=== PATIENT | female | born 2000 | race Hispanic/Latino ===

== ENCOUNTER 2022-05-08 18:45 | Emergency (ER) | payer MEDICAID ==
[2022-05-08] MEDS ORDERED: Zithromax 250 MG TABLET PO ONE (18:59)
[2022-05-08 19:01] VITALS: BP 143/75; PULSE 110
[2022-05-08] MEDS ORDERED: Zithromax 250 MG TABLET ONE (19:02)
[2022-05-08 19:04] VITALS: O2SAT 97
--- NOTE | 2022-05-08 19:04 | ERPHSYRPT ---
- History of Present Illness Time Seen by Provider: 05/08/22 18:48 Source: patient Exam Limitations: no limitations Physician History: 21 years old female presented to the ER with chief complaint of right earaches started yesterday. She tried to use a Q-tip and pain is getting worse. He took [id number] medication and feeling better. She also noticed decreased hearing from right ear and whenever she moves on the right side feels fluid moving along with it. Denies any nasal congestion, sinusitis or URI symptoms. No ear discharge. No fever or chills reported. Timing/Duration: abrupt onset, yesterday Severity: moderate ENT Location: ear (R) Prearrival Treatment: over the counter meds Associated Symptoms: ear pain (R), change in hearing, No ear drainage, No nasal congestion/drainage, No ringing of ears, No sinus infection, No difficulty swallowing Allergies/Adverse Reactions: Penicillins Allergy (Severe, Verified 05/08/22 18:50) Difficulty Breathing - Review of Systems Constitutional: No Symptoms Eyes: No Symptoms Ears, Nose, & Throat: Ear Pain Respiratory: No Symptoms Cardiac: No Symptoms Musculoskeletal: No Symptoms Skin: No Symptoms Neurological: No Symptoms Psychological: No Symptoms Endocrine: No Symptoms - Physical Exam General Appearance: no apparent distress, alert Eye Exam: bilateral eye: normal inspection, PERRL, EOMI Ear Exam: right ear: erythema (Canal), tenderness, TM red, left ear: canal normal, TM normal, bilateral ear: auricle normal Nasal Exam: normal inspection Throat Exam: normal, pharynx normal Neck Exam: normal inspection, non-tender, supple, full range of motion Cardiovascular/Respiratory Exam: normal breath sounds, regular rate/rhythm Neurologic Exam: alert, oriented x 3, cooperative, 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 Started on Zithromax Recommended not using Q-tip. Outpatient follow-up. Counseled pt/family regarding: diagnosis, need for follow-up - Departure Departure Disposition: Home Clinical Impression: Otitis media Condition: Stable Critical Care Time: No Referrals: CRISELDA ROQUE [ACTIVE STAFF] - Follow Up with PCP/3 days Additional Instructions: Take Tylenol/ibuprofen as needed. Continue with antibiotics. Do not use Q- tips. Follow-up with primary care for reevaluation. Return to ER for any worsening Prescriptions: Azithromycin 250 mg [Zithromax 250 MG TABLET] 250 mg PO DAILY 4 Days #4 tablet
== END 2022-05-08 19:31 | disposition home or self-care (01) ==
LOC: ED 18:45
DX: H66.91 Otitis media, unspecified, right ear (principal); H92.01 Otalgia, right ear; H91.8X1 Other specified hearing loss, right ear
CPT/HCPCS: 99281; A9270-GY

== ENCOUNTER 2022-07-18 18:21 | Emergency (ER) | payer MEDICAID ==
--- NOTE | 2022-07-18 19:36 | ERPHSYRPT ---
- History of Present Illness Time Seen by Provider: 07/18/22 19:20 Historian: patient Exam Limitations: no limitations Patient Subjective Stated Complaint: pt here for pain to back and lower abd for a couple days now, she states she is 4 wks and 5 days , no vaginal bleeding, no difficulty urinating Triage Nursing Assessment: pt alert, walked in, resp easy, skin w/d, abd soft, Physician History: This is a 22-year-old overweight white female who presents with bilateral suprapubic abdominal pain. She has not had any vaginal discharge or vaginal bleeding. She is 4 weeks and 5 days . Patient took 2 test within the last 48 hours and they were both positive. Timing/Duration: day(s) (3 days), intermittent Quality: sharpness Pain Radiation: no radiation Severity of Pain-Max: mild Severity of Pain-Current: mild Modifying Factors: Improves With: nothing Associated Symptoms: denies symptoms Previous symptoms: no prior history Allergies/Adverse Reactions: Penicillins Allergy (Severe, Verified 07/18/22 19:00) Difficulty Breathing Hx Tetanus, Diphtheria Vaccination/Date Given: Yes Hx Influenza Vaccination/Date Given: No Hx Pneumococcal Vaccination/Date Given: No Immunizations Up to Date: Yes Travel Risk - International Travel Have you traveled outside of the country in past 3 weeks: No - Coronavirus Screening Are you exhibiting any of the following symptoms?: No Close contact with a COVID-19 positive Pt in past 14-21 Days: No - Vaccine Status Have you recieved a Covid-19 vaccination: No - Review of Systems Constitutional: No Symptoms Eyes: No Symptoms Ears, Nose, & Throat: No Symptoms Respiratory: No Symptoms Cardiac: No Symptoms Abdominal/Gastrointestinal: Abdominal Pain (Suprapubic bilateral) Genitourinary Symptoms: No Symptoms Musculoskeletal: No Symptoms Skin: No Symptoms Neurological: No Symptoms Psychological: No Symptoms Endocrine: No Symptoms Hematologic/Lymphatic: No Symptoms Immunological/Allergic: No Symptoms All Other Systems: Reviewed and Negative - Past Medical History Pertinent Past Medical History: Yes Psycho-Social History: Anxiety, Bipolar, Depression - Past Surgical History Past Surgical History: No - Social History Smoking Status: Former smoker Exposure to second hand smoke: Yes Drug Use: none Patient Lives Alone: No - Female History Hx Last Menstrual Period: april Hx Now: Yes - Nursing Vital Signs Nursing Vital Signs: Initial Vital Signs Temperature 96.7 F 07/18/22 19:09 Pulse Rate 67 07/18/22 19:09 Respiratory Rate 20 07/18/22 19:09 Blood Pressure 113/60 07/18/22 19:09 O2 Sat by Pulse Oximetry 100 07/18/22 19:09 Pain Scale Pain Intensity 8 - Physical Exam General Appearance: no apparent distress, alert, anxiety Eye Exam: PERRL/EOMI, eyes nml inspection Ears, Nose, Throat Exam: normal ENT inspection, moist mucous membranes Neck Exam: normal inspection, non-tender, supple, full range of motion Respiratory Exam: normal breath sounds, lungs clear, airway intact, No chest tenderness, No respiratory distress Cardiovascular Exam: regular rate/rhythm, normal heart sounds, normal peripheral pulses Gastrointestinal/Abdomen Exam: soft, normal bowel sounds, tenderness, No guarding, No rebound Pelvic Exam: not done Rectal Exam: not done Back Exam: normal inspection, normal range of motion, No CVA tenderness, No vertebral tenderness Extremity Exam: normal inspection, normal range of motion, pelvis stable Neurologic Exam: alert, oriented x 3, cooperative, 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, normal mood/affect, nml cerebellar function, nml station & gait, sensation nml Skin Exam: normal color, warm, dry Lymphatic Exam: No adenopathy SpO2 Interpretation: normal SpO2: 100 O2 Delivery: Room Air - Course Nursing assessment & vital signs reviewed: Yes Ordered Tests: Active Orders 24 hr Category Date Time Status CBC W DIFF Stat Lab 07/18/22 19:25 Completed CMP Stat Lab 07/18/22 19:25 Completed CULTURE,URINE Stat Lab 07/18/22 19:50 Received HCG, Quantitative (Inhouse) Stat Lab 07/18/22 19:25 Completed UA W/RFX CULTURE Stat Lab 07/18/22 19:50 Completed Lab/Rad Data: Laboratory Result Diagrams 07/18/22 19:25 07/18/22 19:25 Laboratory Results 07/18/22 07/18/22 07/18/22 Range/Units 19:50 19:25 19:25 WBC 9.3 (4.0-10.5) x10^3/uL RBC 4.73 (4.1-5.4) x10^6/uL Hgb 12.9 (12.0-16.0) g/dL Hct 40.0 (35-47) % MCV 84.6 (78-100) fL MCH 27.3 (26-32) pg MCHC 32.3 (32-36) g/dL RDW 14.4 H (11.5-14.0) % Plt Count 311 (150-450) x10^3/uL MPV 8.4 (7.5-11.0) fL Gran % 66.8 H (36.0-66.0) % Immature Gran % (Auto) 0.2 (0.00-0.4) % Nucleat RBC Rel Count 0.0 (0.00-0.1) % Eos # (Auto) 0.15 (0-0.5) x10^3/uL Immature Gran # (Auto) 0.02 (0.00-0.03) x10^3u/L Absolute Lymphs (auto) 2.32 (1.0-4.6) x10^3/uL Absolute Monos (auto) 0.57 (0.0-1.3) x10^3/uL Absolute Nucleated RBC 0.00 (0.00-0.01) x10^3u/L Lymphocytes % 25.0 (24.0-44.0) % Monocytes % 6.1 (0.0-12.0) % Eosinophils % 1.6 (0.00-5.0) % Basophils % 0.3 (0.0-0.4) % Absolute Granulocytes 6.19 (1.4-6.9) x10^3/uL Basophils # 0.03 (0-0.4) x10^3/uL Sodium 139 (137-145) mmol/L Potassium 3.8 (3.5-5.1) mmol/L Chloride 109 H (98-107) mmol/L Carbon Dioxide 25 (22-30) mmol/L Anion Gap 8.9 (5-15) MEQ/L BUN 10 (7-17) mg/dL Creatinine 0.60 (0.52-1.04) mg/dL Estimated GFR > 60.0 ML/MIN Glucose 86 (74-106) mg/dL Calcium 8.4 (8.4-10.2) mg/dL Total Bilirubin 0.20 (0.2-1.3) mg/dL AST 33 (14-36) U/L ALT 31 (0-35) U/L Alkaline Phosphatase 87 (38-126) U/L Serum Total Protein 7.0 (6.3-8.2) g/dL Albumin 3.9 (3.5-5.0) g/dL Beta HCG, Quant 724.47 mIU/ml Urinalys Dipstick Clnc MAIN LAB Urine Color YELLOW (YELLOW) Urine Appearance CLEAR (CLEAR) Urine pH 7.0 (5-6) Ur Specific Mcder[place]ott 1.025 (1.005-1.025) POC Urine Protein Conf 30 (Negative) Urine Ketones TRACE (NEGATIVE) Urine Nitrite NEGATIVE (NEGATIVE) Urine Bilirubin NEGATIVE (NEGATIVE) Urine Urobilinogen 1 (0-1) mg/dL Urine Leukocytes SMALL (NEGATIVE) Urine WBC (Auto) 3-5 (0-5) /HPF Urine RBC (Auto) 0-2 (0-2) /HPF U Epithel Cells (Auto) RARE (FEW) /HPF Urine Bacteria (Auto) NONE (NEGATIVE) /HPF Urine RBC NEGATIVE (0-5) Alan/ul Urine Mucus (Auto) SLIGHT (NEGATIVE) /HPF Ur Culture Indicated? YES Urine Glucose NEGATIVE (NEGATIVE) mg/dL - Departure Departure Disposition: Home Clinical Impression: UTI (urinary tract infection) during Condition: Stable Critical Care Time: No Referrals: DOCTOR,NO FAMILY [Primary Care Provider] - Follow up/PCP as directed Additional Instructions: Plenty of fluids. Take your antibiotics as prescribed. Follow-up with your primary care provider for further evaluation and management. Prescriptions: Nitrofurantoin Monohyd/M-Cryst [Macrobid 100 mg Capsule] 100 mg PO BID #10 cap
[2022-07-18 19:38] LABS: Absolute Neutrophil Ct (ANC) 6.19 x10^3/uL (1.4-6.9); Basophil (Absolute #) 0.03 x10^3/uL (0-0.4); Eosinophil % 1.6 % (0.00-5.0); Eosinophil (Absolute #) 0.15 x10^3/uL (0-0.5); Hemoglobin 12.9 g/dL (12.0-16.0); Lymphocyte (Absolute #) 2.32 x10^3/uL (1.0-4.6); Mean Cell Volume 84.6 fL (78-100); Mean Corpuscular Hemoglobin 27.3 pg (26-32); Mean Corpuscular Hgb Concent. 32.3 g/dL (32-36); Mean Platelet Volume 8.4 fL (7.5-11.0); Monocyte (Absolute #) 0.57 x10^3/uL (0.0-1.3); Monocytes % 6.1 % (0.0-12.0); Neutrophil % 66.8 % (36.0-66.0); Platelet Count 311 x10^3/uL (150-450); Red Blood Count 4.73 x10^6/uL (4.1-5.4); Red Cell Distribution Width 14.4 % (11.5-14.0); White Blood Count 9.3 x10^3/uL (4.0-10.5)
[2022-07-18 20:09] LABS: ALBUMIN 3.9 g/dL (3.5-5.0); ALKALINE PHOSPHATASE 87 U/L (38-126); ANION GAP 8.9 MEQ/L (5-15); BLOOD UREA NITROGEN 10 mg/dL (7-17); CHLORIDE 109 mmol/L (98-107); Calcium 8.4 mg/dL (8.4-10.2); Carbon Dioxide 25 mmol/L (22-30); EST GLOMERULAR FILTRATION RATE > 60.0 ML/MIN; Glucose 86 mg/dL (74-106); HCG, Quantitative (Inhouse) 724.47 mIU/ml; Potassium 3.8 mmol/L (3.5-5.1); SGOT/AST 33 U/L (14-36); SGPT/ALT 31 U/L (0-35); SODIUM 139 mmol/L (137-145)
[2022-07-18 20:11] LABS: Appearance CLEAR (CLEAR); Bilirubin NEGATIVE (NEGATIVE); Glucose NEGATIVE (NEGATIVE); Ketones TRACE (NEGATIVE); Nitrite NEGATIVE (NEGATIVE); Protein,Urine Dip 30 (Negative); RBC NEGATIVE Ery/ul (0-5); Specific Gravity 1.025 (1.005-1.025); Urobilinogen 1 mg/dL (0-1)
[2022-07-18 20:12] LABS: Dipstick done @ ? MAIN LAB
[2022-07-18 20:16] LABS: Epithelial Cells RARE /HPF (FEW); Mucus SLIGHT /HPF (NEGATIVE); RBC 0-2 /HPF (0-2)
[2022-07-18 20:17] LABS: Urine Cultured Indicated? YES
[2022-07-18 21:17] VITALS: BP 98/63
[2022-07-18 21:28] VITALS: O2SAT 100
[2022-07-18] MEDS ORDERED: Macrobid 100MG Capsule PO ONE (21:28)
[2022-07-18] MEDS ORDERED: Macrobid 100MG Capsule ONE (21:32)
[2022-07-18 21:41] VITALS: PULSE 85
== END 2022-07-18 21:41 | disposition home or self-care (01) ==
LOC: ED 18:21
DX: O23.41 Unspecified infection of urinary tract in pregnancy, first trimester (principal); N39.0 Urinary tract infection, site not specified; Z3A.01 Less than 8 weeks gestation of pregnancy; R10.2 Pelvic and perineal pain; Z28.310 Unvaccinated for COVID-19
CPT/HCPCS: 36415; 80053; 81015; 84702; 85025; 87086; 99283; A9270-GY

== ENCOUNTER 2022-09-06 16:32 | Emergency (ER) | payer OTHER ==
[2022-09-06 17:29] VITALS: BP 123/79; PULSE 102; O2SAT 97
[2022-09-06 18:30] LABS: Group A Strep NOT DETECTED (NEGATIVE)
[2022-09-06 18:42] LABS: INFLUENZA A NEGATIVE (NEGATIVE); INFLUENZA B NEGATIVE (NEGATIVE); RESPIRATORY SYNCTIAL VIRUS NEGATIVE (Negative)
[2022-09-06 18:45] LABS: SARS-CoV-2 Xpert Express POSITIVE (NEGATIVE)
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
== END 2022-09-06 19:14 | disposition home or self-care (01) ==
LOC: ED 16:32
DX: O98.512 Other viral diseases complicating pregnancy, second trimester (principal); U07.1 COVID-19; Z3A.16 16 weeks gestation of pregnancy; H10.9 Unspecified conjunctivitis; J32.9 Chronic sinusitis, unspecified; J02.9 Acute pharyngitis, unspecified; R05.9 Cough, unspecified; Z28.310 Unvaccinated for COVID-19
CPT/HCPCS: 0241U; 87651; 99282